=== PATIENT | female | born 1960 | race Caucasian/White ===

== ENCOUNTER 2021-08-12 16:05 | Emergency (ER) | payer OTHER, SELFPAY ==
[2021-08-12 16:19] VITALS: BP 153/92; PULSE 91; RESP 16; TEMP 36.7; O2SAT 98
--- NOTE | 2021-08-12 16:39 | ED.URI ---
HPI - URI/Sore Throat General Chief Complaint: Upper Respiratory Infection Stated Complaint: Sore Throat,Congestion Time Seen by Provider: 08/12/21 16:39 Source: patient Mode of arrival: ambulatory Limitations: no limitations History of Present Illness HPI Narrative: 61-year-old female presents with complaint of nasal congestion, sinus pain and sinus pressure, postnasal drainage, sore throat for 1 week. Reports over the last 2 days she has had bilateral ear pain, mild cough. Is concerned that she has a sinus infection. Has [place]. Is using a nasal spray with no relief. Denies fever chills. No chest pain or shortness of breath. All systems reviewed and negative except as noted above. Related Data Home Medications Medication Instructions Recorded Confirmed albuterol sulfate 90 mcg/actuation 2 inh inhalation PRN PRN Shortness 08/12/21 08/12/21 aerosol inhaler (ProAir HFA) Of Breath Or Wheezing cholecalciferol (vitamin D3) 125 1 cap PO DAILY 08/12/21 08/12/21 mcg (5,000 unit) capsule fluticasone 250 mcg-salmeterol 50 See Rx Instructions .Route .COMPLEX 08/12/21 08/12/21 mcg/dose blistr powdr for inhalation (Advair Diskus) hydrochlorothiazide 12.5 mg tablet 1 tablet PO DAILY 08/12/21 08/12/21 levothyroxine 100 mcg tablet 1 tablet PO DAILY 08/12/21 08/12/21 (Synthroid) lisinopril 10 mg tablet 1 tablet PO DAILY 08/12/21 08/12/21 loratadine 10 mg tablet 1 tablet PO DAILY 08/12/21 08/12/21 Allergies Allergy/AdvReac Type Severity Reaction Status Date / Time No Known Allergies Allergy Verified 08/12/21 16:24 Review of Systems Review of Systems: CONSTITUTIONAL: Denies fever, chills, or sweats. EYES: Denies visual changes, redness, or discharge. ENT: Reports rhinorrhea, congestion, sore throat and bilateral otalgia. CARDIOVASCULAR: Denies chest pain, palpitations, or edema. RESPIRATORY: Reports cough or dyspnea. GASTROINTESTINAL: Denies abdominal pain, nausea, vomiting, or diarrhea. GENITOURINARY: Denies dysuria or hematuria. SKIN: Denies rash or itching. MUSCULOSKELETAL: Denies back pain, joint pain, or myalgia. NEUROLOGIC: Denies headache, numbness, or weakness. PSYCHIATRIC: Denies anxiety or depression. All other systems reviewed are negative, except as documented in HPI. PMFSH Comments At time of signature, agree with nursing past medical, surgical, social and family history. There is no relevant family history pertinent to the presenting complaint. Exam Narrative: GENERAL: This is a well-nourished, well-developed patient, in no apparent distress. HEAD: normocephalic, atraumatic. EYES: PERRL. Sclera clear/white. Vision is grossly intact. EARS: External ears normal, auditory canals clear and without drainage, mild fluid to bilateral TMs without erythema. NOSE: External nose normal with clear nasal drainage, maxillary sinus tenderness. THROAT: Mucous membranes moist, mild erythema to posterior pharynx with clear postnasal drainage. NECK: Neck supple, non-tender without lymphadenopathy, masses or thyromegaly. CARDIOVASCULAR: Regular rate and rhythm without murmurs, gallops, or rubs. RESPIRATORY: Clear to auscultation. Breath sounds equal bilaterally. No wheezes, rales, or rhonchi. SKIN: warm, Dry, intact with no suspicious lesions or rash, good texture and turgor. NEURO: awake, alert, and oriented to person, place and time. There were no obvious focal neurologic abnormalities. EXTREMITIES: No joint tenderness, effusion, or edema noted. Course Course Level of Care: Express Care Visit Vital Signs Vital signs: Vital Signs Temperature 36.7 C 08/12/21 16:19 Pulse Rate 91 08/12/21 16:19 Respiratory Rate 16 08/12/21 16:19 Blood Pressure 153/92 H 08/12/21 16:19 Pulse Oximetry 98 08/12/21 16:19 Oxygen Delivery Room Air 08/12/21 16:19 Temperature 36.7 C 08/12/21 16:19 Pulse Rate 91 08/12/21 16:19 Respiratory Rate 16
== END 2021-08-12 17:00 | disposition home or self-care (01) ==
PROVIDERS: Emergency Provider Nurse Practitioner Family
DX: J01.90 Acute sinusitis, unspecified (principal); I10 Essential (primary) hypertension; J44.9 Chronic obstructive pulmonary disease, unspecified; E03.9 Hypothyroidism, unspecified
CPT/HCPCS: 87081; 87804; 87880; 99213; G0463

== ENCOUNTER 2022-03-20 10:14 | Emergency (ER) | payer OTHER, SELFPAY ==
[2022-03-20 10:26] VITALS: BP 139/71; PULSE 83; RESP 18; TEMP 36.4; O2SAT 98
--- NOTE | 2022-03-20 10:46 | ED.URI ---
HPI - URI/Sore Throat General Chief Complaint: Upper Respiratory Infection Stated Complaint: Headache behind right eye; stuffy nose Time Seen by Provider: 03/20/22 10:44 Source: patient and RN notes reviewed Mode of arrival: ambulatory Limitations: no limitations History of Present Illness HPI Narrative: 61-year-old female presenting for complaint of headache behind the right eye for 5 days. Also endorses stuffy nose, right gland swelling and itchy throat and ears. She denies tinnitus, dizziness, vision changes, photophobia, fb sensation, redness/drainage. Denies nausea, vomiting, diarrhea, fevers or chills. She has taken Tylenol sinus for symptoms. Hx migraines and seasonal allergies. MD elicited complaint: cough Related Data Home Medications Medication Instructions Recorded Confirmed albuterol sulfate 90 mcg/actuation 2 inh inhalation PRN PRN Shortness 08/12/21 03/20/22 aerosol inhaler (ProAir HFA) Of Breath Or Wheezing cholecalciferol (vitamin D3) 125 1 cap PO DAILY 08/12/21 03/20/22 mcg (5,000 unit) capsule fluticasone 250 mcg-salmeterol 50 See Rx Instructions .Route .COMPLEX 08/12/21 03/20/22 mcg/dose blistr powdr for inhalation (Advair Diskus) hydrochlorothiazide 12.5 mg tablet 1 tablet PO DAILY 08/12/21 03/20/22 levothyroxine 100 mcg tablet 1 tablet PO DAILY 08/12/21 03/20/22 (Synthroid) lisinopril 10 mg tablet 1 tablet PO DAILY 08/12/21 03/20/22 loratadine 10 mg tablet 1 tablet PO DAILY 08/12/21 03/20/22 aspirin 81 mg tablet,delayed 81 mg PO DAILY 03/20/22 03/20/22 release Allergies Allergy/AdvReac Type Severity Reaction Status Date / Time No Known Allergies Allergy Verified 03/20/22 10:38 Review of Systems Review of Systems: CONSTITUTIONAL: Denies malaise, chills, sweats, fever EYES: Denies visual changes, redness, or discharge ENT: Reports rhinorrhea, congestion, sinus pain, denies otalgia, sore throat CARDIOVASCULAR: Denies chest pain, palpitations, edema RESPIRATORY: Denies dyspnea GASTROINTESTINAL: Denies abdominal pain, nausea, vomiting, diarrhea SKIN: Denies rash or itching MUSCULOSKELETAL: Denies myalgia Exam Narrative: GENERAL: well-appearing EYES: PERRLA, conjunctivae clear, no drainage, EOMI. ENT: Mucous membranes moist. TM pearly amaya with dull light reflex bilaterally; no tragal tenderness. NECK: Supple. No lymphadenopathy CHEST: Clear to auscultation, breath sounds equal. No HEART: Regular rate and rhythm. No murmur heard. SKIN: Warm, dry, no rash. NEURO: Alert and oriented x3. Facial sensation intact, no facial droop. PSYCH: Normal mood and affect Course Course Emergency Course: Patient is aware of diagnosis, understands and agrees to treatment plan. Anticipatory guidance given. Patient agrees to follow-up as directed and is aware of reasons to seek care at the emergency department. Portions of this record may have been created with voice recognition software Level of Care: Express Care Visit Vital Signs Vital signs: Vital Signs Temperature 97.5 F L 03/20/22 10:26 Pulse Rate 83 03/20/22 10:26 Respiratory Rate 18 03/20/22 10:26 Blood Pressure 139/71 03/20/22 10:26 Pulse Oximetry 98 03/20/22 10:26 Oxygen Delivery Room Air 03/20/22 10:26 Temperature 97.5 F L 03/20/22 10:26 Pulse Rate 83 03/20/22 10:26 Respiratory Rate 18 03/20/22 10:26 Blood Pressure 139/71 03/20/22 10:26 Pulse Oximetry 98 03/20/22 10:26 Oxygen Delivery Room Air 03/20/22 10:26 reviewed MDM - URI/Sore Throat MDM Narrative Medical decision making narrative: Advised supportive measures and signs/symptoms to go to the ER. Pt is appropriate for outpt treatment and f/u. Differential Diagnosis Differential diagnosis: Likely upper respiratory infection, sinusitis and viral infection Discharge Plan Discharge Clinical Impression: Viral infection Patient Disposition: Home, Self-Care Condition: Stable Additional Instructions: Recom
== END 2022-03-20 11:17 | disposition home or self-care (01) ==
PROVIDERS: Emergency Provider Nurse Practitioner Family
DX: B34.9 Viral infection, unspecified (principal); Z20.822 Contact with and (suspected) exposure to COVID-19; Z79.82 Long term (current) use of aspirin
CPT/HCPCS: 87426; 99213; C9803; G0463

== ENCOUNTER 2022-08-25 09:32 | Emergency (ER) | payer OTHER, SELFPAY ==
[2022-08-25 09:39] VITALS: BP 164/90; PULSE 95; RESP 18; TEMP 36.2; O2SAT 96
--- NOTE | 2022-08-25 09:58 | ED.URI ---
HPI - URI/Sore Throat General Chief Complaint: Upper Respiratory Infection Stated Complaint: Sore Throat,Headache Time Seen by Provider: 08/25/22 09:45 Source: patient and RN notes reviewed Mode of arrival: ambulatory Limitations: no limitations History of Present Illness HPI Narrative: Patient presents today with a 3 day history of sore throat, headache, body aches, ?swollen glands?, with fever up to 99 last night. She currently rates her pain 5/10 and has been taking NyQuil and ibuprofen without much relief. History of tonsillectomy. Denies known sick contacts. History of COPD. She does not currently smoke. Related Data Home Medications Medication Instructions Recorded Confirmed albuterol sulfate 90 mcg/actuation 2 inh inhalation PRN PRN Shortness 08/12/21 08/25/22 aerosol inhaler (ProAir HFA) Of Breath Or Wheezing cholecalciferol (vitamin D3) 125 1 cap PO DAILY 08/12/21 08/25/22 mcg (5,000 unit) capsule fluticasone 250 mcg-salmeterol 50 See Rx Instructions .Route .COMPLEX 08/12/21 08/25/22 mcg/dose blistr powdr for inhalation (Advair Diskus) hydrochlorothiazide 12.5 mg tablet 1 tablet PO DAILY 08/12/21 08/25/22 levothyroxine 100 mcg tablet 1 tablet PO DAILY 08/12/21 08/25/22 (Synthroid) lisinopril 10 mg tablet 1 tablet PO DAILY 08/12/21 08/25/22 loratadine 10 mg tablet 1 tablet PO DAILY 08/12/21 08/25/22 aspirin 81 mg tablet,delayed 81 mg PO DAILY 03/20/22 08/25/22 release Allergies Allergy/AdvReac Type Severity Reaction Status Date / Time No Known Allergies Allergy Verified 08/25/22 09:45 Review of Systems Review of Systems: CONSTITUTIONAL: Denies chills, or sweats.+ fever, body aches EYES: Denies visual changes, redness, or discharge. ENT: Denies rhinorrhea, congestion, or otalgia.+ sore throat CARDIOVASCULAR: Denies chest pain, palpitations, or edema. RESPIRATORY: Denies cough or dyspnea. GASTROINTESTINAL: Denies abdominal pain, nausea, vomiting, or diarrhea. GENITOURINARY: Denies dysuria or hematuria. SKIN: Denies rash, itching, or wounds. MUSCULOSKELETAL: Denies back pain, joint pain, or myalgia. NEUROLOGIC: Denies numbness, tingling, or weakness.+ headache PSYCH: Denies depression or anxiety. [facility] Past Medical History Medical History (Updated 08/25/22 @ 10:03 by Felipa Erickson, [facility], ) COPD (chronic obstructive pulmonary disease) Hypothyroidism Surgical History Surgical History (Updated 08/25/22 @ 10:01 by Felipa Erickson, [facility], ) Hx of tonsillectomy Comments At time of signature, I have reviewed and agree with nursing past medical, surgical, social and family history unless otherwise noted. Please see nursing chart for further information. There is no relevant family history pertinent to the presenting complaint Exam Narrative: GENERAL: Well-appearing, well-nourished, and in no acute distress. HEAD: Normocephalic, atraumatic. EYES: EOMI. No redness or drainage. Conjunctivae normal. ENT: Mucous membranes pink and moist. Nares clear. No rhinorrhea. TMs normal bilaterally. Throat erythematous and mildly edematous without exudate. Uvula midline. NECK: Normal AROM. Supple. No lymphadenopathy. CHEST: No respiratory distress. Clear to auscultation. HEART: Regular rate and rhythm. No murmur appreciated. Normal peripheral pulses. EXTREMITIES: Normal range of motion. No edema. SKIN: Warm, dry, no rash. Capillary refill normal. Normal skin turgor. NEURO: No focal deficits. Alert and oriented x3. Gait steady. PSYCH: Normal affect. No signs of depression or anxiety. Course Course Level of Care: Express Care Visit Vital Signs Vital signs: Vital Signs Oxygen Delivery Room Air 08/25/22 09:38 Temperature 97.1 F L 08/25/22 09:39 Pulse Rate 95 08/25/22 09:39 Respiratory Rate 18 08/25/22 09:39 Blood Pressure 164/90 H 08/25/22 09:39 Pulse Oximetry 96 08/25/22 09:39 Oxygen Delivery Room Air 08/25/22 09:39 Reviewed. Pt
== END 2022-08-25 10:05 | disposition home or self-care (01) ==
PROVIDERS: Emergency Provider Nurse Practitioner
DX: J06.9 Acute upper respiratory infection, unspecified (principal); J44.9 Chronic obstructive pulmonary disease, unspecified; E03.9 Hypothyroidism, unspecified; Z79.82 Long term (current) use of aspirin
CPT/HCPCS: 87081; 87880; 99213; G0463

== ENCOUNTER 2023-01-27 10:51 | Emergency (ER) | payer OTHER, SELFPAY ==
--- NOTE | 2023-01-27 11:11 | ED.URI ---
HPI - URI/Sore Throat General Chief Complaint: Upper Respiratory Infection Stated Complaint: Sore Throat,Cough,Congestion Source: patient and RN notes reviewed History of Present Illness HPI Narrative: 62 yo F presents to urgent care with complaints of congestion and productive cough x 8 days. Pt states she had a fever x 5 days but that has resolved. Reports right ear pain. Pt reports some SOB and some dizziness. Pt states she had PNA 6 months ago and she feels that way again. Denies any N/V/D, chest pain, or falls. Pt has been taking OTC cold medication with minimal relief. Related Data Home Medications Medication Instructions Recorded Confirmed albuterol sulfate 90 mcg/actuation 2 inh inhalation PRN PRN Shortness 08/12/21 01/27/23 aerosol inhaler (ProAir HFA) Of Breath Or Wheezing cholecalciferol (vitamin D3) 125 1 cap PO DAILY 08/12/21 01/27/23 mcg (5,000 unit) capsule fluticasone 250 mcg-salmeterol 50 See Rx Instructions .Route .COMPLEX 08/12/21 01/27/23 mcg/dose blistr powdr for inhalation (Advair Diskus) hydrochlorothiazide 12.5 mg tablet 1 tablet PO DAILY 08/12/21 01/27/23 levothyroxine 100 mcg tablet 1 tablet PO DAILY 08/12/21 01/27/23 (Synthroid) lisinopril 10 mg tablet 1 tablet PO DAILY 08/12/21 01/27/23 loratadine 10 mg tablet 1 tablet PO DAILY 08/12/21 01/27/23 aspirin 81 mg tablet,delayed 81 mg PO DAILY 03/20/22 01/27/23 release Allergies Allergy/AdvReac Type Severity Reaction Status Date / Time No Known Allergies Allergy Verified 08/25/22 09:45 Review of Systems Review of Systems: Pertinent positives and pertinent negatives per HPI. [facility] Past Medical History Medical History (Updated 01/27/23 @ 11:28 by Diandra Aldana APRN) COPD (chronic obstructive pulmonary disease) Hypothyroidism Surgical History Surgical History (Updated 08/25/22 @ 10:01 by Felipa Erickson, [employer], ) Hx of tonsillectomy Comments At the time of my signature, I reviewed and agree with the nursing past medical, surgical, social, and family history. There is no relevant family history pertinent to the patient complaint. Exam Narrative: GENERAL: This is a well-nourished, well-developed patient, in no apparent distress. HEAD: normocephalic, atraumatic. EYES: Sclera clear/white. Vision is grossly intact. EARS: External ears normal, auditory canals clear and without drainage, TMs normal without perforation. Hearing grossly intact. NOSE: External nose normal with no obvious nasal discharge, nares without redness, no rhinorrhea. + congestion. THROAT: Mucous membranes moist, posterior pharynx clear. NECK: Neck supple, non-tender without lymphadenopathy, masses or thyromegaly. CARDIOVASCULAR: Regular rate and rhythm without murmurs, gallops, or rubs. RESPIRATORY: Clear to auscultation, but diminished bilaterally. Breath sounds equal bilaterally. No wheezes, rales, or rhonchi. SKIN: warm, intact with no suspicious lesions or rash, good texture and turgor. NEURO: awake, alert, and oriented to person, place and time. There were no obvious focal neurologic abnormalities. Course Course Level of Care: Express Care Visit Vital Signs Vital signs: Vital Signs Temperature 98.2 F 01/27/23 11:12 Pulse Rate 92 01/27/23 11:12 Respiratory Rate 20 01/27/23 11:12 Blood Pressure 185/86 H 01/27/23 11:12 Pulse Oximetry 98 01/27/23 11:12 Oxygen Delivery Room Air 01/27/23 11:12 Temperature 98.2 F 01/27/23 11:12 Pulse Rate 92 01/27/23 11:12 Respiratory Rate 20 01/27/23 11:12 Blood Pressure 185/86 H 01/27/23 11:12 Pulse Oximetry 98 01/27/23 11:12 Oxygen Delivery Room Air 01/27/23 11:12 reviewed MDM - URI/Sore Throat MDM Narrative Medical decision making narrative: Go to the ER for any new or worsening symptoms. Avoid smoking/second-hand smoke. Continue to take Tylenol or Motrin for pain. Increase your Vitamin C intake. Use a humidifier or vaporizer at
[2023-01-27 11:12] VITALS: BP 185/86; PULSE 92; RESP 20; TEMP 36.8; O2SAT 98
== END 2023-01-27 11:43 | disposition home or self-care (01) ==
PROVIDERS: Emergency Provider Nurse Practitioner Family
DX: J40 Bronchitis, not specified as acute or chronic (principal); J32.9 Chronic sinusitis, unspecified; J44.9 Chronic obstructive pulmonary disease, unspecified; E03.9 Hypothyroidism, unspecified
CPT/HCPCS: 99213; G0463

== ENCOUNTER 2024-08-25 03:19 | Emergency (ER) | payer MEDICARE, OTHER, SELFPAY ==
[2024-08-25] VITALS (15 sets, daily range): BP systolic 144–167; BP diastolic 71–84; PULSE 74–99; RESP 11–18; TEMP 36.3–36.6; O2SAT 92–97
--- NOTE | ~2024-08-25 | CT_ITS ---
CT of the Abdomen and Pelvis: Indication: Abdominal pain Technique: 2.5 mm axial scans were obtained through the abdomen and pelvis following intravenous adm inistration of 100 cc of Omnipaque 350. Dose reduction technique was used on this scan by utilizing a utomated exposure control and iterative reconstruction technique. The dose-length product (DLP) was 1 431.46 mGy-cm. Findings: Scans through the lung bases are unremarkable. The liver, spleen, pancreas, gallbladder, adrenals and kidneys are within normal limits. There are at herosclerotic calcifications of the aorta. No lymphadenopathy. No bowel obstruction or bowel wall thickening. There is no evidence to suggest acute appendicitis. Images through the pelvis were performed. Urinary bladder unremarkable. No adnexal mass seen. No asci rj. Impression: No significant abnormalities seen. Reviewed, dictated and finalized at [facility]. Impression: No significant abnormalities seen.
[2024-08-25 03:38] LABS: Basophils Absolute Auto 0.1 K/mm3 (0.0-0.1); Eosinophils Absolute Auto 0.3 K/mm3 (0-0.3); Eosinophils Percent Auto 2.7 % (0-4.4); Hematocrit 44.6 % (37.0-47.0); Hemoglobin 14.6 g/dL (12.0-15.0); Immature Granulocyte Absolute 0.02 K/mm3 (0.00-0.031); Immature Granulocyte Percent A 0.2 % (0-0.5); Lymphocytes Absolute Auto 3.33 K/mm3 (0.9-3.2); Mean Corpuscular HGB Conc 32.7 g/dl (32-36); Mean Corpuscular Volume 91.6 fl (80-100); Monocytes Percent Auto 11.3 % (2.6-8.5); Neutrophils Absolute Auto 4.5 K/mm3 (1.3-6.7); Neutrophils Percent Auto 48.8 % (45.5-73.1); Platelet Count Result 312 k/mm3 (150-375); Red Blood Count 4.87 M/mm3 (4.2-5.4); Red Cell Distribution Width 14.1 % (11.5-14.5); White Blood Count 9.2 K/mm3 (4.5-10.0)
[2024-08-25 03:45] LABS: Add Urine Microscopic? YES; Appearance Urine Clear (Clear); Bacteria Urine None Seen /hpf; Bilirubin Urine Negative (Negative); Blood Urine Negative (Negative); Color Urine Yellow (Yellow); Glucose Urine UA Negative (Negative); Ketones Urine Negative (Negative); Leukocyte Esterase Ur 3+ LEU/UL (Negative); Nitrate Urine Negative (Negative); Non Pathogenic Casts 0-2; Protein Urine Negative (Negative); RBC Urine 0-2 /hpf (0-2); Specific Grav Ur 1.011 (1.001-1.035); Squamous Epithelial Cell Urine Few /hpf (Few); Urobilinogen Urine 0.2 mg/dL (<2.0); WBC Urine 51-100 /hpf (0-3); pH Urine 5.5 (5.0-9.0)
[2024-08-25 03:51] LABS: Alanine Aminotransferase 27 U/L (6-35); Albumin Level 4.8 g/dL (3.5-5.1); Alkaline Phosphatase 112 U/L (38-126); Anion Gap 10 mmol/L (4-12); Aspartate Amino Transferase 31 U/L (14-36); Bilirubin,Total 0.4 mg/dL (0.2-1.3); Blood Urea Nitrogen 11 mg/dL (7-17); Calcium 10.5 mg/dL (8.4-10.2); Carbon Dioxide 23 mmol/L (22-30); Chloride 105 mmol/L (98-107); Estimated CRCL calculation 103 ml/min; Estimated Glomerular Filt Rate > 60; Glucose 110 mg/dL (65-110); Lipase 69 U/L (23-300); Potassium 4.3 mmol/L (3.4-5.0); Sodium 138 mmol/L (137-145)
[2024-08-25] MEDS: MORPHINE SULFATE (*CRX) 4 MG/ML INJ IV PUSH (04:21)
[2024-08-25] MEDS: ONDANSETRON INJ 4 MG/2 ML VIAL IV PUSH (04:21)
[2024-08-25] MEDS: SODIUM CHLORIDE 0.9% IV 1,000 ML 999 ML IV CONT (04:23)
--- NOTE | 2024-08-25 04:53 | ED.GENADULT ---
HPI - General Adult General Chief complaint: Abdominal Pain Stated complaint: abd pain Time Seen by Provider: 08/25/24 03:49 History of Present Illness HPI narrative: Patient is a 64-year-old female who presents emergency department chief complaint of right flank and right lower quadrant pain for the last 3 days patient reports that she feels that she might be retaining some urine. Patient reports that she may have some urinary retention patient denies vomiting or diarrhea but has felt nauseated Related Data Home Medications ?Medication ?Instructions ?Recorded ?Confirmed ?Last Taken ?Type cholecalciferol (vitamin D3) 125 1 cap PO DAILY 08/12/21 06/11/24 Unknown History mcg (5,000 unit) capsule Allergies Allergy/AdvReac Type Severity Reaction Status Date / Time No Known Allergies Allergy Verified 08/25/24 05:02 Review of Systems Review of Systems: A 10 system review of systems was completed on the patient and is negative except for what is stated in the HPI. Nursing and ancillary documentation was reviewed. [facility] Past Medical History Medical History Elevated glucose Hyperlipidemia HTN (hypertension) Migraines Arthritis Seasonal allergies Hypothyroidism COPD (chronic obstructive pulmonary disease) Surgical History Surgical History Hx of tonsillectomy Family History Family History Father Heart disease Social History Social History Smoking status: Former smoker Alcohol intake: current Alcohol use details: 5-7 drinks per week Substance use: never Do You Feel Safe in your Home?: Yes Exam Narrative: GENERAL: Well-appearing, well-nourished, and in no acute distress. HEAD: Normocephalic, atraumatic. EYES: PERRLA and EOMI. ENT: Nares clear, no rhinorrhea or epistaxis. Mucous membranes moist. NECK: Supple. CHEST: Clear to auscultation. No respiratory distress. HEART: Regular rate and rhythm. No murmur heard. Normal peripheral pulses. ABDOMEN: Soft, nontender, nondistended, normal active bowel sounds. EXTREMITIES: Normal range of motion. No edema. SKIN: Warm, dry, no rash. NEURO: No focal deficits. Alert and oriented x3. PSYCH: Normal mood and affect. Course Vital Signs Vital signs: Vital Signs Temperature 36.3 C L 08/25/24 03:27 Pulse Rate 99 08/25/24 03:27 Respiratory Rate 18 08/25/24 03:27 Blood Pressure 167/84 H 08/25/24 03:27 Pulse Oximetry 94 08/25/24 03:27 Oxygen Delivery Room Air 08/25/24 03:27 Temperature 36.3 C L 08/25/24 03:27 Pulse Rate 99 08/25/24 03:27 Respiratory Rate 18 08/25/24 03:27 Blood Pressure 167/84 H 08/25/24 03:27 Pulse Oximetry 94 08/25/24 03:27 Oxygen Delivery Room Air 08/25/24 03:27 Medical Decision Making MDM Narrative Medical decision making narrative: Differential diagnosis includes appendicitis, ureterolithiasis, pyelonephritis, UTI, Laboratory studies were obtained which showed a normal CBC CMP showed normal renal function lipase was normal urinalysis showed 51-[address] scan of the abdomen pelvis showed no evidence of obstructing stone or evidence of acute intra-abdominal pathology Patient was given a dose Rocephin in the emergency department be discharged home on Keflex Vital Signs Vital Signs: Vital Signs Temperature 36.3 C L 08/25/24 03:27 Pulse Rate 99 08/25/24 03:27 Respiratory Rate 18 08/25/24 03:27 Blood Pressure 167/84 H 08/25/24 03:27 Pulse Oximetry 94 08/25/24 03:27 Oxygen Delivery Room Air 08/25/24 03:27 Temperature 36.3 C L 08/25/24 03:27 Pulse Rate 99 08/25/24 03:27 Respiratory Rate 18 08/25/24 03:27 Blood Pressure 167/84 H 08/25/24 03:27 Pulse Oximetry 94 08/25/24 03:27 Oxygen Delivery Room Air 08/25/24 03:27 Lab Data 08/25/24 03:31 08/25/24 03:31 Labs: Lab Results 08/25/24 Range/Units 03:31 WBC 9.2 (4.5-10.0) K/mm3 RBC 4.87 (4.2-5.4) M/mm3 Hgb 14.6 (12.0-15.0) g/dL Hct 44.6 (37.0-47.0) % MCV 91.6 (80-100) fl MCH 30.0 (26-34) pg MCHC 32.7 (32-36) g/dl RDW 14.1 (11.5-14.5) % Plt Count 312 (150-375) k/mm3 MPV 11.0 H (7.4-10.4) fl Immature Gran % (Auto) 0.2 (0-0.5) % Neut % (Auto) 48.8 (45.5-73.1) % Lymph % (Auto) 36.0 (18.3-44.2) % [place] % (Auto) 11.3 H (2.6-8.5) % Eos % (Auto) 2.7 (0-4.4) % Baso % (Auto) 1.0 (0.2-1.2) % Lymph # (Auto) 3.33 H (0.9-3.2) K/mm3 [place] # (Auto) 1.0 H (0.1-0.6) K/mm3 Eos # (Auto) 0.3 (0-0.3) K/mm3 Baso # (Auto) 0.1 (0.0-0.1) K/mm3 Abs Immat Gran (auto) 0.02 (0.00-0.031) K/mm3 Absolute Neuts (auto) 4.5 (1.3-6.7) K/mm3 Absolute Nucleated RBC 0.000 (0.0-0.012) K/mm3 Nucleated RBC % 0.0 (0.0-0.2) % Sodium 138 (137-145) mmol/L Potassium 4.3 (3.4-5.0) mmol/L Chloride 105 (98-107) mmol/L Carbon Dioxide 23 (22-30) mmol/L Anion Gap 10 (4-12) mmol/L BUN 11 (7-17) mg/dL Creatinine 0.60 L (0.7-1.0) mg/dL Estim Creat Clear Calc 103 ml/min Estimated GFR > 60 (59 - ) Glucose 110 (65-110) mg/dL Calcium 10.5 H (8.4-10.2) mg/dL Total Bilirubin 0.4 (0.2-1.3) mg/dL AST 31 (14-36) U/L ALT 27 (6-35) U/L Alkaline Phosphatase 112 (38-126) U/L Total Protein 8.0 (6.3-8.2) g/dL Albumin 4.8 (3.5-5.1) g/dL Lipase 69 (23-300) U/L Urine Color Yellow (Yellow) Urine Appearance Clear (Clear) Urine pH 5.5 (5.0-9.0) Ur Specific [place] 1.011 (1.001-1.035) Urine Protein Negative (Negative) mg/dL Urine Glucose (UA) Negative (Negative) mg/dL Urine Ketones Negative (Negative) mg/dL Ur Blood (Man) Negative (Negative) Urine Nitrate Negative (Negative) Urine Bilirubin Negative (Negative) Urine Urobilinogen 0.2 (<2.0) mg/dL Leukocyte Esterase Rfl 3+ H (Negative) DAVIN/UL Urine RBC 0-2 (0-2) /hpf Urine WBC 51-100 H (0-3) /hpf Ur Squamous Epith Cells Few (Few) /hpf Urine Bacteria None seen /hpf Urine Casts 0-2 Discharge Plan Discharge Clinical Impression: Abdominal pain, Acute UTI Patient Disposition: Home Condition: Stable Instructions: Antibiotic Form, Urinary Tract Infection in Women (ED), Abdominal Pain (ED) Patient Language: Occitan Prescriptions: New cephalexin 500 mg capsule 500 mg PO Q8H 7 Days Qty: 21 0RF ondansetron 4 mg tablet,disintegrating 4 mg PO Q8H PRN (Reason: nausea and vomiting) Qty: 10 0RF cephalexin 500 mg capsule 500 mg PO Q8H 7 Days Qty: 21 0RF ondansetron 4 mg tablet,disintegrating 4 mg PO Q8H PRN (Reason: nausea and vomiting) Qty: 10 0RF No Action cholecalciferol (vitamin D3) 125 mcg (5,000 unit) capsule 1 cap PO DAILY lisinopril 20 mg tablet 20 mg PO DAILY Qty: 90 3RF levothyroxine [Synthroid] 100 mcg tablet 100 mcg PO DAILY Qty: 90 3RF rosuvastatin 5 mg tablet 5 mg PO DAILY Qty: 90 3RF fluticasone propionate [24 Hour Allergy Relief] 50 mcg/actuation spray,suspension 1 spray intranasal BID Qty: 48 3RF Rx Instructions: administer into each nostril amlodipine 5 mg tablet 5 mg PO DAILY Qty: 90 3RF Follow-up/Referrals: PHYSICIAN,LIFE SKILLS COORDINATOR VOLUNTEER [Primary Care Provider] - Mitesh Garcias MD [Physician] - Time of Disposition: 05:04
== END 2024-08-25 05:26 | disposition home or self-care (01) ==
PROVIDERS: Emergency Provider Emergency Medicine
DX: R10.31 Right lower quadrant pain (principal); N39.0 Urinary tract infection, site not specified; E78.5 Hyperlipidemia, unspecified; I10 Essential (primary) hypertension; E03.9 Hypothyroidism, unspecified; J44.9 Chronic obstructive pulmonary disease, unspecified
CPT/HCPCS: 36415; 74177; 80053; 81001; 83690; 85025; 87086; 96361; 96365; 96375; 99284; J0696; J2270; J2405; J7030; Q9967

== ENCOUNTER 2024-12-02 09:02 | Outpatient (CLI) | payer MEDICARE, OTHER, SELFPAY ==
--- NOTE | 2024-12-02 09:06 | EST_ITS ---
Patient Info Name: Yaneth Eid Age: 64 years : 1960 Gender: Female Ht: 68 in Wt: 230 lbs BSA: 2.28 m2 HR: 75 bpm BP: 151 / 81 mmHg Exam Date: 12/02/2024 9:06 AM Patient Status: O Admit Date: 12/02/2024 Exam Type: CA stress test treadmill A treadmill exercise stress test was performed. Staff Attending Provider: Zonia Grullon Exercise Technologist: Lisbeth Gray Exercise Physician: Erickson Leon DO Summary 1. 1. Negative Saud exercise stress test for ischemic ST changes by ECG criteria. 2. 2. Reduced functional capacity, achieving 5.9 METs of workload. 3. 3. Baseline hypertension and hypertensive response to exercise. 4. 4. Appropriate HR response to exercise. 5. 5. Appropriate HR recovery at 1 minute post exercise. 6. 6. No imaging with stress testing. 7. 7. Patient informed of the above results. Protocol: Saud Stress ECG Details Stage: REST Duration (min): 0 min : 21 sec Speed (mph): 0.0 Grade (%): 0 HR (bpm): 77 SBP (mmHg): --- DBP (mmHg): --- METS: --- Stage: REST Duration (min): 7 min : 55 sec Speed (mph): 0.0 Grade (%): 0 HR (bpm): 83 SBP (mmHg): 151 DBP (mmHg): 81 METS: --- Stage: STAGE 1 Duration (min): 1 min : 0 sec Speed (mph): 1.7 Grade (%): 10 HR (bpm): 97 SBP (mmHg): 151 DBP (mmHg): 81 METS: --- Stage: STAGE 1 Duration (min): 2 min : 0 sec Speed (mph): 1.7 Grade (%): 10 HR (bpm): 107 SBP (mmHg): 151 DBP (mmHg): 81 METS: --- Stage: STAGE 1 Duration (min): 3 min : 0 sec Speed (mph): 1.7 Grade (%): 10 HR (bpm): 118 SBP (mmHg): 214 DBP (mmHg): 87 METS: --- Stage: STAGE 2 Duration (min): 0 min : 41 sec Speed (mph): 2.5 Grade (%): 12 HR (bpm): 133 SBP (mmHg): 214 DBP (mmHg): 87 METS: --- Stage: RECOVERY Duration (min): 0 min : 18 sec Speed (mph): 0.0 Grade (%): 0 HR (bpm): 127 SBP (mmHg): 214 DBP (mmHg): 87 METS: --- Stage: RECOVERY Duration (min): 1 min : 18 sec Speed (mph): 0.0 Grade (%): 0 HR (bpm): 114 SBP (mmHg): 214 DBP (mmHg): 87 METS: --- Stage: RECOVERY Duration (min): 2 min : 18 sec Speed (mph): 0.0 Grade (%): 0 HR (bpm): 101 SBP (mmHg): 214 DBP (mmHg): 87 METS: --- Stage: RECOVERY Duration (min): 3 min : 18 sec Speed (mph): 0.0 Grade (%): 0 HR (bpm): 97 SBP (mmHg): 216 DBP (mmHg): 77 METS: --- Stage: RECOVERY Duration (min): 3 min : 28 sec Speed (mph): 0.0 Grade (%): 0 HR (bpm): 99 SBP (mmHg): 216 DBP (mmHg): 77 METS: --- Rest HR: 83 bpm Peak HR: 131 bpm Rest Sys BP: 151 mmHg Peak Sys BP: 216 mmHg Max Pred HR: 154 bpm % Max Pred HR: 85 % Target HR: 131 bpm Max RPP: 28,296 bpm*mmHg Beal Score: -3 BP Response: Patient exhibited a hypertensive response with stress Termination Reason: Reached target heart rate or workload Cardiac Symptoms: Shortness of breath Max ST Seg Deviation: 1.30 mm Total Time: 3 min : 41 sec Rest Álvarez BP: 81 mmHg Peak Álvarez BP: 77 mmHg Angina Score: None Total METS: 5.9 Resting ECG Sinus rhythm. Stress ECG No ST changes. Arrhythmias PVC's and a ventricular triplet. Report Signatures
--- OUTSIDE RECORDS SUMMARY | 2024-12-02 09:26 | XMS_ITS | Clinical Summary ---
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 Gender Identity Not on file Sexual Orientation Not on file Plan of Treatment Health Maintenance Due Date Last Done Comments Hepatitis C Virus (HCV) Screening 1960 TdaP Immunization 1960 Cologuard 05/11/2003 Colonoscopy 05/11/2003 Colorectal Cancer Screening 05/11/2003 Immunochemical Fecal Occult Blood 05/11/2003 Pneumococcal Immunization (50+ years) (1 of 1 - PCV) 2008 Zoster Immunization (1 of 2) 2008 Influenza Immunization (#1) 11/04/202401/04, 12/13/2019, 01/16/2019, Additional history exists SARS-COV-2 Immunization ( - 2024- season) 2024 05/28/2020, 05/07/2020 Respiratory Syncytial Virus (RSV) Immunization (Adult) (1 - 1-dose 75+ series) 2033 Mammogram Discontinued 11/10/2021 Hepatitis B Immunization Aged Out No longer eligible based on patient's age to complete this topic Human Papillomavirus (HPV) Immunization Aged Out No longer eligible based on patient's age to complete this topic Meningococcal Immunization (ACWY) Aged Out No longer eligible based on patient's age to complete this topic Rotavirus Immunization Aged Out No lo nger eligible based on patient's age to complete this topic Insurance MICAH TUCKER [id number] MICAH TUCKER [id number] [employer] Care Teams Speech Pathology Teacher Relationship Specialty Start Date End Date Provider, None MICAH PCP - General 05/17/22
--- NOTE | 2024-12-02 09:40 | ECG_ITS ---
Test Date: 2024-12-02 09:53:40 Measurements Intervals [place] Rate: 92 P: 59 FL: 176 QRS: -30 QRSD: 98 T: 33 QT: 344 QTc: 427 Interpretive Statements SINUS RHYTHM Poor R wave progression No previous ECG available for comparison Electronically Signed On 12-02-2024 10:29:12 CDT by Jerry Coronado M.D.
== END 2024-12-02 09:03 | disposition home or self-care (01) ==
LOC: ANHCARD 09:03
PROVIDERS: PCP Nurse Practitioner Family; Visit Provider Nurse Practitioner Family
DX: R93.1 Abnormal findings on diagnostic imaging of heart and coronary circulation (principal); R06.09 Other forms of dyspnea; I10 Essential (primary) hypertension
CPT/HCPCS: 93005; 93017